=== PATIENT | female | born 1990 | race Two or more races ===

== ENCOUNTER 2017-11-21 17:18 | Emergency (ER) | payer MEDICAID ==
[~2017-11-21] VITALS: Ht 142.2 cm; Wt 48.3 kg
[2017-11-21 17:19] VITALS: BP 112/78
== END 2017-11-21 17:53 | disposition home or self-care (01) ==
LOC: ED 17:47
DX: K08.89 Other specified disorders of teeth and supporting structures (principal)
CPT/HCPCS: 99283